=== PATIENT | female | born 1990 | race Caucasian/White ===

== ENCOUNTER 2019-04-17 14:57 | Emergency (ER) | payer OTHER ==
[2019-04-17] MEDS: ONDANSETRON (ODT) 4 MG TAB ODT ×2 (16:34→21:17)
[2019-04-17] MEDS: NICOTINE (21 MG/24 HR) PATCH TRANSDERM (17:32)
[2019-04-17] MEDS: IBUPROFEN 800 MG TAB PO (23:44)
[2019-04-18] MEDS: ONDANSETRON (ODT) 4 MG TAB ODT (01:14)
[2019-04-18] MEDS ORDERED: ACETAMINOPHEN 325 MG TAB PO (02:30)
== END 2019-04-18 08:30 ==
LOC: E/R 04-18 08:30
DX: R45.851 Suicidal ideations (principal); F17.210 Nicotine dependence, cigarettes, uncomplicated
CPT/HCPCS: 36415; 80053; 80307; 81001; 84703; 85025; 99285